=== PATIENT | male | born 1955 | race Caucasian/White ===

== ENCOUNTER 2019-03-16 22:48 | Inpatient (IN) ==
[2019-03-16] MEDS ORDERED: 0.9 % Sodium Chloride 1,000 ML IVC ONE ×2 (22:54→23:48)
[2019-03-16] MEDS ORDERED: Piperacillin/Tazobactam 3.375 GM in 0.9 % Sodium Chloride Mini Bag 100 ML IVPB ONE (23:01)
[2019-03-16 23:14] LABS: Basophils # 0.1 K/mcL (0.0-0.2); Basophils % 0.4 %; Eosinophils % 0.1 %; Hematocrit 35.8 % (37.5-50.1); Hemoglobin 11.8 g/dL (12.9-16.9); Immature Granulocytes % 3.7 % (0-4); Lymphocytes # 0.1 K/mcL (0.6-4.6); Lymphocytes % 0.8 %; Mean Corpuscular Hemoglobin 33.2 pg (28.0-33.3); Mean Platelet Volume 8.6 fL (9.4-12.4); Monocytes # 0.2 K/mcL (0.0-1.3); Monocytes % 1.7 %; Neutrophils # 12.2 K/mcL (1.6-8.9); Nucleated Red Blood Cells 0.7 /100 WBC (0); Platelet Count 210 K/mcL (140-400); Red Blood Count 3.55 M/mcL (4.19-5.50); Segmented Neutrophils % 93.3 %; White Blood Count 13.1 K/mcL (4.3-11.1)
[2019-03-16 23:15] LABS: Mean Corpuscular Volume 100.8 fL (83.0-100.0)
[2019-03-16 23:22] LABS: INR 1.1; Prothrombin Time 12.2 Seconds (9.4-12.1)
[2019-03-16 23:24] LABS: Activated Partial Thrombo Time 32.4 Seconds (26.0-36.0)
[2019-03-16 23:33] LABS: Polychromasia 1+ (Not Present)
[2019-03-16] MEDS ORDERED: Ketorolac 15 MG/ML VIAL IVP ONE (23:34)
[2019-03-16 23:37] LABS: Alanine Aminotransferase 72 Units/L (7-52); Albumin 3.8 g/dL (3.5-5.7); Alkaline Phosphatase 118 Units/L (34-104); Aspartate Amino Transferase 56 Units/L (13-39); BUN/Creatinine Ratio 19 (6-26); Bilirubin,Direct 0.1 mg/dL (0.0-0.2); Bilirubin,Indirect 0.2 mg/dL (0.0-1.2); Bilirubin,Total 0.3 mg/dL (0.3-1.0); Blood Urea Nitrogen 22 mg/dL (8-23); Calcium 9.2 mg/dL (8.6-10.3); Carbon Dioxide 26 mEq/L (23-29); Chloride 99 mEq/L (98-107); Globulin 3.9 g/dL (2.4-3.5); Glucose 105 mg/dL (70-105); Magnesium 1.8 mg/dL (1.6-2.6); Osmolality,Calculated 284 (280-300); Potassium 4.1 mEq/L (3.5-5.1); Sodium 135 mEq/L (136-145); Total Protein 7.7 g/dL (6.4-8.9); Troponin I < 0.03 ng/mL (< 0.04); eGFR For African Americans > 60 (> 60); eGFR For Non-African Americans > 60 (> 60)
--- NOTE | 2019-03-16 23:47 | Emergency Department Note ---
Disposition Clinical Impression: Sepsis Qualifiers: Sepsis type: sepsis due to unspecified organism Qualified Code(s): A41.9 - Sepsis, unspecified organism Fever Qualifiers: Fever type: unspecified Qualified Code(s): R50.9 - Fever, unspecified Disposition: Still a Patient Condition: Fair Referrals: NONE,PCP [Primary Care Provider] - Forms: ED Satisfaction Letter Time of Disposition: 00:53 General Adult HPI - General Chief complaint: ED Chest Pain Stated complaint: Vomiting, Weakness, Cancer pt. Time Seen by Provider: 03/16/19 22:49 Source: patient, family () Limitations: no limitations Nursing Notes Reviewed: Yes Vital Signs Reviewed: Yes - History of Present Illness HPI Narrative: 64-year-old male history of lung cancer currently undergoing radiation presents to the emergency department with weakness and vomiting. States starting today he is feeling weak. His had to help him go to the bathroom multiple times. His most recent episode he believes he tripped fell off to the side onto his right arm. He is unsure if he hit his head. No loss of consciousness. He does not take any anticoagulants. He required assistance to get up and his noted that he was warm to the touch. In oral temperature was obtained and he had a fever. He presents here for further evaluation. On the way into the hospital and out of the house he had episode of nonbloody emesis. He has not eaten much in the past 2 days. He was recently diagnosed with pneumonia treated inpatient and then discharge home. He normally wears oxygen at home but denies any significant shortness of breath. He points to some discomfort in the lower left chest wall in epigastric region. He follows with Dr. Riggs and Dr. Preciado and currently is undergoing radiation after completing chemotherapy a month ago. He has only received 2 doses of radiation and has not had any for the past week or so due to the diagnosis of pneumonia and is weakness. Pain Scale: 10 - Related Data Home Medications Medication Instructions Recorded Confirmed Aspirin 325 mg PO DAILY PRN 03/02/19 03/16/19 Turmeric Root Extract [Turmeric] 500 mg PO 2-3XD 03/03/19 03/16/19 predniSONE [PredniSONE] 5 mg PO BID 03/03/19 03/16/19 Previous Rx's Medication Instructions Recorded Omeprazole [PriLOSEC] 20 mg PO BIDAC #60 capsule. 11/29/18 Promethazine [Phenergan] 25 mg PO Q6HR PRN #30 tablet 12/15/18 Venlafaxine XR (24 HR) [Effexor XR] 75 mg PO DAILY #30 cap.er.24h 02/02/19 Levothyroxine [Synthroid] 25 mcg PO 0630 #30 tablet 02/03/19 Dexamethasone [Decadron] 8 mg PO BID 30 Days #120 tab 02/07/19 Amoxicillin/Clavulanate [Augmentin] 875 mg PO BIDWM #12 tablet 03/08/19 Allergies Allergy/AdvReac Type Severity Reaction Status Date / Time No Known Allergies Allergy Verified 02/09/19 10:36 All systems ED: reviewed and negative except as stated. Review of Systems: As Per HPI Constitutional: Reports: fever, weakness. Denies: chills Cardiovascular: Reports: syncope. Denies: chest pain Respiratory: Reports: dyspnea Gastrointestinal: Reports: nausea, vomiting. Denies: abdominal pain, diarrhea Genitourinary: Denies: dysuria Neurological: Reports: confusion. Denies: headache Endocrine: Reports: fatigue Past Medical History - Past Medical History Attestation: Yes The following information was validated with the patient. Source: patient Medical history: Reports: cancer, GERD Psychiatric history: Reports: no psych history - Social History Smoking Status: Former smoker Smokeless Tobacco Status: No Alcohol use: Reports: none Drug use: Reports: none Physical Exam - General Limitations: no limitations General appearance: alert, other (Ill appearing) - Head Head exam: atraumatic, normocephalic, normal inspection - Eye Eye exam: Present: normal appearance, EOMI, other (slight right ptosis) - ENT ENT exam: normal exam, normal oropharynx, mucous membranes dry - Neck Neck exam: Present: normal inspection, full ROM, trachea midline - Chest Chest inspection: Present: normal inspection, symmetric chest wall rise - Respiratory Respiratory exam: Present: respiratory distress (Moderate), other (Bilateral crackles with diminished breath sounds) - Cardiovascular Cardiovascular exam: Present: normal rhythm, tachycardia, normal heart sounds - Expanded Cardiovascular Exam Peripheral pulses: 2+: radial (R), radial (L) - Abdominal Exam Abdominal exam: Present: soft, Non-Tender, normal bowel sounds. Absent: tenderness, distention, guarding, rebound, rigidity - Extremities Exam Extremities exam: Present: normal inspection, full ROM. Absent: tenderness, pedal edema, calf tenderness - Back Exam Back exam: Present: normal inspection, full ROM. Absent: tenderness - Neurological Exam Neurological exam: Present: alert - Expanded Neurological Exam Patient oriented to: Present: person, place. Absent: time (2017, (Thursday)) Speech: Present: fluid speech Cranial nerves: EOM function (II, III, IV, ): Normal, facial sensation (V): Normal, facial palsy (VII): Abnormal Right (right ptosis), gag reflex (IX): Normal, spinal accessory function (XI): Normal, tongue deviation (XII): Normal Motor strength - LUE: 4/5 Motor strength - RUE: 4/5 Motor strength - LLE: 4/5 Motor strength - RLE: 4/5 Coma Scale Eye Opening: Spontaneous Coma Scale Motor Response: Obeys Commands Coma Scale Verbal Response: Confused Coma Scale Total: 14 - Psychiatric Psychiatric exam: Present: normal affect, normal mood - Skin Skin exam: Present: warm, dry, intact, pallor. Absent: rash, cyanosis, diaphoresis Course Course Narrative: Patient a history of lung cancer on radiation presenting with weakness in episode of vomiting. He is also complaining of some chest discomfort and dyspnea. His lungs are diminished bilaterally with some crackles. Review of his labs shows tachycardia fever concern for sepsis however given his recent hospitalization and malignancy concern for pulmonary embolism. His confusion could be attributed to likely infectious etiology such as pneumonia given the fall will consider any future cranial abnormality. Likely infectious source is pulmonary. Sepsis workup initiated including IV fluid resuscitation and CT imaging including head as he reportedly has brain mets. Will initiate vancomycin and Zosyn. Patient will require admission. - Reevaluation(s) Reevaluation #1: Review of his labs shows a leukocytosis. His lactate elevated at 2.3. Some abnormalities to his liver enzymes. Given the vomiting will obtain CT imaging of his abdomen and pelvis. Patient will require admission pending CT imaging. He will be signed out to nighttime physician Dr. Dc and Dr. Hardy. Please see his note for further details. Time: 00:32 Vital Signs Temperature 102.9 F H 03/16/19 22:58 Pulse Rate 113 03/16/19 22:58 Respiratory Rate 16 03/16/19 22:58 Blood Pressure 123/73 07/24/19 22:58 O2 Sat by Pulse Oximetry 94 03/16/19 22:58 Temperature 102.9 F H 03/16/19 22:58 Pulse Rate 107 03/17/19 00:01 Respiratory Rate 22 03/17/19 00:01 Blood Pressure 111/68 03/17/19 00:01 O2 Sat by Pulse Oximetry 99 03/17/19 00:01 Oxygen Delivery Oxygen Delivery Nasal Cannula Medical Decision Making - MDM Narrative Medical decision making narrative: Patient was discussed with my attending physician who agrees with ED management and final disposition. They independently evaluated the patient. Please refer to their attestation to this encounter for additional information. This note was generated by [employer] voice recognition software and as a result grammatical or spelling errors may occur using this program. - Medical Records Medical records reviewed: Yes I reviewed the patient's medical records. - Lab Data Lab results reviewed: Yes I reviewed the patient's lab results. Result diagrams: 03/16/19 23:03 03/16/19 23:03 Lab Results 03/16/19 03/16/19 03/16/19 Range/Units 23:03 23:03 23:03 WBC 13.1 H (4.3-11.1) K/mcL RBC 3.55 L (4.19-5.50) M/mcL Hgb 11.8 L (12.9-16.9) g/dL Hct 35.8 L (37.5-50.1) % MCV 100.8 H D (83.0-100.0) fL MCH 33.2 (28.0-33.3) pg MCHC 33.0 (31.6-35.5) g/dL RDW 14.0 (11.5-14.5) % Plt Count 210 (140-400) K/mcL MPV 8.6 L (9.4-12.4) fL Immature Gran % 3.7 (0-4) % Seg Neutrophils % 93.3 % Lymphocytes % 0.8 % Monocytes % 1.7 % Eosinophils % 0.1 % Basophils % 0.4 % Neutrophils # 12.2 H (1.6-8.9) K/mcL Lymphocytes # 0.1 L (0.6-4.6) K/mcL Monocytes # 0.2 (0.0-1.3) K/mcL Eosinophils # 0.0 (0.0-0.6) K/mcL Basophils # 0.1 (0.0-0.2) K/mcL Nucleated RBCs/100 WBC 0.7 H (0) /100 WBC Polychromasia 1+ A (Not Present) PT 12.2 H (9.4-12.1) Seconds INR 1.1 APTT 32.4 (26.0-36.0) Seconds Sodium 135 L (136-145) mEq/L Potassium 4.1 (3.5-5.1) mEq/L Chloride 99 (98-107) mEq/L Carbon Dioxide 26 (23-29) mEq/L BUN 22 (8-23) mg/dL Creatinine 1.17 (0.70-1.30) mg/dL Est GFR ( Amer) > 60 (> 60) Est GFR (Non-Af Amer) > 60 (> 60) BUN/Creatinine Ratio 19 (6-26) Glucose 105 (70-105) mg/dL Calculated Osmolality 284 (280-300) Lactic Acid (0.5-2.2) mmol/L Calcium 9.2 (8.6-10.3) mg/dL Phosphorus 2.0 L (2.7-4.5) mg/dL Magnesium 1.8 (1.6-2.6) mg/dL Total Bilirubin 0.3 (0.3-1.0) mg/dL Direct Bilirubin 0.1 (0.0-0.2) mg/dL Indirect Bilirubin 0.2 (0.0-1.2) mg/dL AST 56 H (13-39) Units/L ALT 72 H (7-52) Units/L Alkaline Phosphatase 118 H (34-104) Units/L Troponin I < 0.03 (< 0.04) ng/mL Serum Total Protein 7.7 (6.4-8.9) g/dL Albumin 3.8 (3.5-5.7) g/dL Globulin 3.9 H (2.4-3.5) g/dL Albumin/Globulin Ratio 1.0 L (1.1-2.2) Urine Color (Yellow) Urine Clarity (Clear) Urine pH (5.0-8.0) pH Units Ur Specific [place] (1.010-1.025) Urine Protein (Neg-Trace) mg/dL Urine Glucose (UA) (Normal) mg/dL Urine Ketones (Negative) mg/dL Urine Blood (Negative) Urine Nitrite (Negative) Urine Bilirubin (Negative) Urine Urobilinogen (Normal) mg/dL Ur Leukocyte Esterase (Negative) Ur Culture Indicated? (NO) 03/16/19 03/16/19 Range/Units 23:03 23:43 WBC (4.3-11.1) K/mcL RBC (4.19-5.50) M/mcL Hgb (12.9-16.9) g/dL Hct (37.5-50.1) % MCV (83.0-100.0) fL MCH (28.0-33.3) pg MCHC (31.6-35.5) g/dL RDW (11.5-14.5) % Plt Count (140-400) K/mcL MPV (9.4-12.4) fL Immature Gran % (0-4) % Seg Neutrophils % % Lymphocytes % % Monocytes % % Eosinophils % % Basophils % % Neutrophils # (1.6-8.9) K/mcL Lymphocytes # (0.6-4.6) K/mcL Monocytes # (0.0-1.3) K/mcL Eosinophils # (0.0-0.6) K/mcL Basophils # (0.0-0.2) K/mcL Nucleated RBCs/100 WBC (0) /100 WBC Polychromasia (Not Present) PT (9.4-12.1) Seconds INR APTT (26.0-36.0) Seconds Sodium (136-145) mEq/L Potassium (3.5-5.1) mEq/L Chloride (98-107) mEq/L Carbon Dioxide (23-29) mEq/L BUN (8-23) mg/dL Creatinine (0.70-1.30) mg/dL Est GFR ( Amer) (> 60) Est GFR (Non-Af Amer) (> 60) BUN/Creatinine Ratio (6-26) Glucose (70-105) mg/dL Calculated Osmolality (280-300) Lactic Acid 2.4 H (0.5-2.2) mmol/L Calcium (8.6-10.3) mg/dL Phosphorus (2.7-4.5) mg/dL Magnesium (1.6-2.6) mg/dL Total Bilirubin (0.3-1.0) mg/dL Direct Bilirubin (0.0-0.2) mg/dL Indirect Bilirubin (0.0-1.2) mg/dL AST (13-39) Units/L ALT (7-52) Units/L Alkaline Phosphatase (34-104) Units/L Troponin I (< 0.04) ng/mL Serum Total Protein (6.4-8.9) g/dL Albumin (3.5-5.7) g/dL Globulin (2.4-3.5) g/dL Albumin/Globulin Ratio (1.1-2.2) Urine Color Yellow (Yellow) Urine Clarity Clear (Clear) Urine pH 7.0 (5.0-8.0) pH Units Ur Specific [place] 1.012 (1.010-1.025) Urine Protein Negative (Neg-Trace) mg/dL Urine Glucose (UA) Normal (Normal) mg/dL Urine Ketones Negative (Negative) mg/dL Urine Blood Negative (Negative) Urine Nitrite Negative (Negative) Urine Bilirubin Negative (Negative) Urine Urobilinogen Normal (Normal) mg/dL Ur Leukocyte Esterase Negative (Negative) Ur Culture Indicated? NO (NO) - Radiology Data Radiology results reviewed: Yes I reviewed the patient's radiology results. Chest X-Ray 03/16/19 22:55 IMPRESSION: Interval improvement of infiltrate at the right lung base. D/ / Janet Edwards MD / Janet Edwards MD Interpreting Provider: Janet Edwards MD - EKG Data EKG #1 EKG attestation: Yes I reviewed and interpreted this EKG. EKG results narrative: EKG performed 2255 sinus tachycardia 1 15 bpm, normal axis, good R wave progression, no ST elevation or depression, no T-wave inversion. Intervals appear within normal limits. No old EKG available for comparison at this time. No acute ischemic changes. S.B.A.R. - S.B.A.R. Situation: Demographics, MOA Background: Presenting Complaint, Relevant PMH, Meds, & Allergies Assessment: Vital Signs, Course and respsone to treatment, Exam Concerns, P atient/Family Expectation, Pertinant Lab Results (WBC, Lactate), Outstanding Labs (lactate, CT imaging) Recommendation: Barrier(s) to disposition, Recommendation based on pending studies, treatments, or consults (admission) S.B.A.R. Report Given to: Dr. Dc/Hayley Mcghee Repor Time: 00:53
[2019-03-17] MEDS ORDERED: Isovue-370 500 ML BOTTLE IVP ONE (00:07)
[2019-03-17 00:10] LABS: Bilirubin,Urine Negative (Negative); Blood,Urine Negative (Negative); Clarity,Urine Clear (Clear); Color,Urine Yellow (Yellow); Glucose,Urine (UA) Normal (Normal); Ketones,Urine Negative (Negative); Leukocyte Esterase,Urine Negative (Negative); Nitrite,Urine Negative (Negative); Protein,Urine Negative (Neg-Trace); Specific Gravity,Urine 1.012 (1.010-1.025); Urobilinogen,Urine Normal (Normal)
--- NOTE | 2019-03-17 00:34 | Emergency Department Note ---
Disposition Clinical Impression: Sepsis Qualifiers: Sepsis type: sepsis due to unspecified organism Qualified Code(s): A41.9 - Sepsis, unspecified organism Disposition: Still a Patient Condition: Good Referrals: NONE,PCP [Primary Care Provider] - Forms: ED Satisfaction Letter Time of Disposition: 00:31 General Adult HPI - General Chief complaint: ED Chest Pain Stated complaint: Vomiting, Weakness, Cancer pt. Time Seen by Provider: 03/16/19 22:49 Source: patient, family () Limitations: no limitations - History of Present Illness Pain Scale: 10 - Related Data Home Medications Medication Instructions Recorded Confirmed Aspirin 325 mg PO DAILY PRN 03/02/19 03/16/19 Turmeric Root Extract [Turmeric] 500 mg PO 2-3XD 03/03/19 03/16/19 predniSONE [PredniSONE] 5 mg PO BID 03/03/19 03/16/19 Previous Rx's Medication Instructions Recorded Omeprazole [PriLOSEC] 20 mg PO BIDAC #60 capsule.dr 11/29/18 Promethazine [Phenergan] 25 mg PO Q6HR PRN #30 tablet 12/15/18 Venlafaxine XR (24 HR) [Effexor XR] 75 mg PO DAILY #30 cap.er.24h 02/02/19 Levothyroxine [Synthroid] 25 mcg PO 0630 #30 tablet 02/03/19 Dexamethasone [Decadron] 8 mg PO BID 30 Days #120 tab 02/07/19 Amoxicillin/Clavulanate [Augmentin] 875 mg PO BIDWM #12 tablet 03/08/19 Allergies Allergy/AdvReac Type Severity Reaction Status Date / Time No Known Allergies Allergy Verified 02/09/19 10:36 Constitutional: Reports: fever, weakness. Denies: chills Cardiovascular: Reports: syncope. Denies: chest pain Respiratory: Reports: dyspnea Gastrointestinal: Reports: nausea, vomiting. Denies: abdominal pain, diarrhea Genitourinary: Denies: dysuria Neurological: Reports: confusion. Denies: headache Endocrine: Reports: fatigue Past Medical History - Past Medical History Medical history: Reports: cancer, GERD Psychiatric history: Reports: no psych history - Social History Smoking Status: Former smoker Smokeless Tobacco Status: No Alcohol use: Reports: none Drug use: Reports: none Physical Exam - General Limitations: no limitations General appearance: alert, other (Ill appearing) Course - Consultations Consultation #1: signed out patinet to Dr. Dc and Hayley for followup on CT Scans, Sepsis protocol has been started and zosyn therapy has been given with IVF therapy. Plan is to followup on his CT scan (H/C/AB) and then admit to medicine Time: 00:31 Vital Signs Temperature 102.9 F H 03/16/19 22:58 Pulse Rate 113 03/16/19 22:58 Respiratory Rate 16 03/16/19 22:58 Blood Pressure 123/73 03/16/19 22:58 O2 Sat by Pulse Oximetry 94 03/16/19 22:58 Temperature 102.9 F H 03/16/19 22:58 Pulse Rate 107 03/17/19 00:01 Respiratory Rate 22 03/17/19 00:01 Blood Pressure 111/68 03/17/19 00:01 O2 Sat by Pulse Oximetry 99 03/17/19 00:01 Oxygen Delivery Oxygen Delivery Nasal Cannula Medical Decision Making - Lab Data Result diagrams: 03/16/19 23:03 03/16/19 23:03 Lab Results 03/16/19 03/16/19 03/16/19 Range/Units 23:03 23:03 23:03 WBC 13.1 H (4.3-11.1) K/mcL RBC 3.55 L (4.19-5.50) M/mcL Hgb 11.8 L (12.9-16.9) g/dL Hct 35.8 L (37.5-50.1) % MCV 100.8 H D (83.0-100.0) fL MCH 33.2 (28.0-33.3) pg MCHC 33.0 (31.6-35.5) g/dL RDW 14.0 (11.5-14.5) % Plt Count 210 (140-400) K/mcL MPV 8.6 L (9.4-12.4) fL Immature Gran % 3.7 (0-4) % Seg Neutrophils % 93.3 % Lymphocytes % 0.8 % Monocytes % 1.7 % Eosinophils % 0.1 % Basophils % 0.4 % Neutrophils # 12.2 H (1.6-8.9) K/mcL Lymphocytes # 0.1 L (0.6-4.6) K/mcL Monocytes # 0.2 (0.0-1.3) K/mcL Eosinophils # 0.0 (0.0-0.6) K/mcL Basophils # 0.1 (0.0-0.2) K/mcL Nucleated RBCs/100 WBC 0.7 H (0) /100 WBC Polychromasia 1+ A (Not Present) PT 12.2 H (9.4-12.1) Seconds INR 1.1 APTT 32.4 (26.0-36.0) Seconds Sodium 135 L (136-145) mEq/L Potassium 4.1 (3.5-5.1) mEq/L Chloride 99 (98-107) mEq/L Carbon Dioxide 26 (23-29) mEq/L BUN 22 (8-23) mg/dL Creatinine 1.17 (0.70-1.30) mg/dL Est GFR ( Amer) > 60 (> 60) Est GFR (Non-Af Amer) > 60 (> 60) BUN/Creatinine Ratio 19 (6-26) Glucose 105 (70-105) mg/dL Calculated Osmolality 284 (280-300) Lactic Acid (0.5-2.2) mmol/L Calcium 9.2 (8.6-10.3) mg/dL Phosphorus 2.0 L (2.7-4.5) mg/dL Magnesium 1.8 (1.6-2.6) mg/dL Total Bilirubin 0.3 (0.3-1.0) mg/dL Direct Bilirubin 0.1 (0.0-0.2) mg/dL Indirect Bilirubin 0.2 (0.0-1.2) mg/dL AST 56 H (13-39) Units/L ALT 72 H (7-52) Units/L Alkaline Phosphatase 118 H (34-104) Units/L Troponin I < 0.03 (< 0.04) ng/mL Serum Total Protein 7.7 (6.4-8.9) g/dL Albumin 3.8 (3.5-5.7) g/dL Globulin 3.9 H (2.4-3.5) g/dL Albumin/Globulin Ratio 1.0 L (1.1-2.2) Urine Color (Yellow) Urine Clarity (Clear) Urine pH (5.0-8.0) pH Units Ur Specific [place] (1.010-1.025) Urine Protein (Neg-Trace) mg/dL Urine Glucose (UA) (Normal) mg/dL Urine Ketones (Negative) mg/dL Urine Blood (Negative) Urine Nitrite (Negative) Urine Bilirubin (Negative) Urine Urobilinogen (Normal) mg/dL Ur Leukocyte Esterase (Negative) Ur Culture Indicated? (NO) 03/16/19 03/16/19 Range/Units 23:03 23:43 WBC (4.3-11.1) K/mcL RBC (4.19-5.50) M/mcL Hgb (12.9-16.9) g/dL Hct (37.5-50.1) % MCV (83.0-100.0) fL MCH (28.0-33.3) pg MCHC (31.6-35.5) g/dL RDW (11.5-14.5) % Plt Count (140-400) K/mcL MPV (9.4-12.4) fL Immature Gran % (0-4) % Seg Neutrophils % % Lymphocytes % % Monocytes % % Eosinophils % % Basophils % % Neutrophils # (1.6-8.9) K/mcL Lymphocytes # (0.6-4.6) K/mcL Monocytes # (0.0-1.3) K/mcL Eosinophils # (0.0-0.6) K/mcL Basophils # (0.0-0.2) K/mcL Nucleated RBCs/100 WBC (0) /100 WBC Polychromasia (Not Present) PT (9.4-12.1) Seconds INR APTT (26.0-36.0) Seconds Sodium (136-145) mEq/L Potassium (3.5-5.1) mEq/L Chloride (98-107) mEq/L Carbon Dioxide (23-29) mEq/L BUN (8-23) mg/dL Creatinine (0.70-1.30) mg/dL Est GFR ( Amer) (> 60) Est GFR (Non-Af Amer) (> 60) BUN/Creatinine Ratio (6-26) Glucose (70-105) mg/dL Calculated Osmolality (280-300) Lactic Acid 2.4 H (0.5-2.2) mmol/L Calcium (8.6-10.3) mg/dL Phosphorus (2.7-4.5) mg/dL Magnesium (1.6-2.6) mg/dL Total Bilirubin (0.3-1.0) mg/dL Direct Bilirubin (0.0-0.2) mg/dL Indirect Bilirubin (0.0-1.2) mg/dL AST (13-39) Units/L ALT (7-52) Units/L Alkaline Phosphatase (34-104) Units/L Troponin I (< 0.04) ng/mL Serum Total Protein (6.4-8.9) g/dL Albumin (3.5-5.7) g/dL Globulin (2.4-3.5) g/dL Albumin/Globulin Ratio (1.1-2.2) Urine Color Yellow (Yellow) Urine Clarity Clear (Clear) Urine pH 7.0 (5.0-8.0) pH Units Ur Specific [place] 1.012 (1.010-1.025) Urine Protein Negative (Neg-Trace) mg/dL Urine Glucose (UA) Normal (Normal) mg/dL Urine Ketones Negative (Negative) mg/dL Urine Blood Negative (Negative) Urine Nitrite Negative (Negative) Urine Bilirubin Negative (Negative) Urine Urobilinogen Normal (Normal) mg/dL Ur Leukocyte Esterase Negative (Negative) Ur Culture Indicated? NO (NO) Attestation Statement - Attestation Attestation: I reviewed the residents documentation and agree with the residents assessment and plan of care. I have personally had face to face time with the patient. (Brief History, Brief Exam, and MDM) I personally supervised and was present for the akhtar/critical portions of the following procedures completed by the resident: EKG 64 year old male presents to the ED with complaints of weaknss and productive cough and has a history of cancer and is currenty recieving chemotherapy. Also being treated for pnueoina as an outpatinet and essentially has failed outpatinet therapy. He was a SEPSIS alert upon arrival and we have started protocol with IVF and zosy therapy as pulmonary is likley the source. he does have lv to the brain and elevated lfts, so we will scna HCT, CTA chest, and CT ab/p with IV contrast. We will contienu evaluastion and then admit to medicine.
--- NOTE | 2019-03-17 00:56 | Emergency Department Note ---
Disposition Clinical Impression: Sepsis Qualifiers: Sepsis type: sepsis due to unspecified organism Qualified Code(s): A41.9 - Sepsis, unspecified organism Fever Qualifiers: Fever type: unspecified Qualified Code(s): R50.9 - Fever, unspecified Metastatic lung cancer (metastasis from lung to other site) Qualifiers: Laterality: unspecified laterality Qualified Code(s): C34.90 - Malignant neoplasm of unspecified part of unspecified bronchus or lung Disposition: Admitted As Inpatient Condition: Serious Time of Disposition: 03:47 General Adult HPI - General Chief complaint: ED Chest Pain Stated complaint: Vomiting, Weakness, Cancer pt. Time Seen by Provider: 03/16/19 22:49 Source: patient, family () Limitations: no limitations - History of Present Illness HPI Narrative: Patient signed out from Dr. Jann Cruz and Dr. Keisha Claros at the end of their shift. Please see documentation by these physicians for initial evaluation, management of this patient. 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 He is presenting today due to generalized malaise and weakness nausea vomiting and possible fall. Patient meets sepsis criteria with onus of infection suspected to be in his lung. We are currently pending CT scan of the head and CTA chest, CT abd and pelvis for further evaluation, laboratory results at this time show an elevated white count. Elevated Lactic acid now wnl after IVF, antibiotics. The patient is a full code. Upon my initial examination patient is sitting upright in hospital bed he is alert and oriented he is engaged to conversation answering questions appropriately. He denies pain or nausea at this time. No other concerns or complaints. Pain Scale: 10 - Related Data Home Medications Medication Instructions Recorded Confirmed Aspirin 325 mg PO DAILY PRN 03/02/19 03/16/19 Turmeric Root Extract [Turmeric] 500 mg PO 2-3XD 03/03/19 03/16/19 predniSONE [PredniSONE] 5 mg PO BID 03/03/19 03/16/19 Previous Rx's Medication Instructions Recorded Omeprazole [PriLOSEC] 20 mg PO BIDAC #60 capsule. 11/29/18 Promethazine [Phenergan] 25 mg PO Q6HR PRN #30 tablet 12/15/18 Venlafaxine XR (24 HR) [Effexor XR] 75 mg PO DAILY #30 cap.er.24h 02/02/19 Levothyroxine [Synthroid] 25 mcg PO 0630 #30 tablet 02/03/19 Dexamethasone [Decadron] 8 mg PO BID 30 Days #120 tab 02/07/19 Amoxicillin/Clavulanate [Augmentin] 875 mg PO BIDWM #12 tablet 03/08/19 Allergies Allergy/AdvReac Type Severity Reaction Status Date / Time No Known Allergies Allergy Verified 02/09/19 10:36 Constitutional: Reports: fever, weakness. Denies: chills Cardiovascular: Reports: syncope. Denies: chest pain Respiratory: Reports: dyspnea Gastrointestinal: Reports: nausea, vomiting. Denies: abdominal pain, diarrhea Genitourinary: Denies: dysuria Neurological: Reports: confusion. Denies: headache Endocrine: Reports: fatigue Past Medical History - Past Medical History Medical history: Reports: cancer, GERD Psychiatric history: Reports: no psych history - Social History Smoking Status: Former smoker Smokeless Tobacco Status: No Alcohol use: Reports: none Drug use: Reports: none Physical Exam - General Limitations: no limitations General appearance: alert, other (Ill appearing) Course Vital Signs Temperature 102.9 F H 03/16/19 22:58 Pulse Rate 113 03/16/19 22:58 Respiratory Rate 16 03/16/19 22:58 Blood Pressure 123/73 03/16/19 22:58 O2 Sat by Pulse Oximetry 94 03/16/19 22:58 Temperature 99.8 F H 03/17/19 03:38 Pulse Rate 89 03/17/19 02:00 Respiratory Rate 16 03/17/19 03:38 Blood Pressure 80/65 03/17/19 03:38 O2 Sat by Pulse Oximetry 96 03/17/19 02:00 Oxygen Delivery Oxygen Delivery Nasal Cannula Medical Decision Making - MDM Narrative Medical decision making narrative: CT of the chest shows worsening of secretions in the lower lobe of the right lung. There is a new right middle lobe infiltrate consistent with pneumonia which is a suspected focus of sepsis infection. Patient was admitted to hospitalist medicine service for further evaluation and management with likely pulmonology/oncology consultation. Patient and family members at bedside verbalized their understanding and agreement with this plan. Per the hospitalist requests we have added vancomycin and Levaquin to the patient's antibiotic regimen, also 100 mg Solu-Cortef was ordered and a dministered in the ED per hospitalist. The patient remains asymptomatic at this time. Noted drop in blood pressure after administration of fentanyl for pain which developed here in the ED earlier in the night. The patient is otherwise hemodynamically stable time of admission with improving mentation, strong peripheral pulses, no signs of hypoperfusion. - Lab Data Lab results reviewed: Yes I reviewed the patient's lab results. Result diagrams: 03/16/19 23:03 03/16/19 23:03 Lab Results 03/16/19 03/16/19 03/16/19 Range/Units 23:03 23:03 23:03 WBC 13.1 H (4.3-11.1) K/mcL RBC 3.55 L (4.19-5.50) M/mcL Hgb 11.8 L (12.9-16.9) g/dL Hct 35.8 L (37.5-50.1) % MCV 100.8 H D (83.0-100.0) fL MCH 33.2 (28.0-33.3) pg MCHC 33.0 (31.6-35.5) g/dL RDW 14.0 (11.5-14.5) % Plt Count 210 (140-400) K/mcL MPV 8.6 L (9.4-12.4) fL Immature Gran % 3.7 (0-4) % Seg Neutrophils % 93.3 % Lymphocytes % 0.8 % Monocytes % 1.7 % Eosinophils % 0.1 % Basophils % 0.4 % Neutrophils # 12.2 H (1.6-8.9) K/mcL Lymphocytes # 0.1 L (0.6-4.6) K/mcL Monocytes # 0.2 (0.0-1.3) K/mcL Eosinophils # 0.0 (0.0-0.6) K/mcL Basophils # 0.1 (0.0-0.2) K/mcL Nucleated RBCs/100 WBC 0.7 H (0) /100 WBC Polychromasia 1+ A (Not Present) PT 12.2 H (9.4-12.1) Seconds INR 1.1 APTT 32.4 (26.0-36.0) Seconds Sodium 135 L (136-145) mEq/L Potassium 4.1 (3.5-5.1) mEq/L Chloride 99 (98-107) mEq/L Carbon Dioxide 26 (23-29) mEq/L BUN 22 (8-23) mg/dL Creatinine 1.17 (0.70-1.30) mg/dL Est GFR ( Amer) > 60 (> 60) Est GFR (Non-Af Amer) > 60 (> 60) BUN/Creatinine Ratio 19 (6-26) Glucose 105 (70-105) mg/dL Calculated Osmolality 284 (280-300) Lactic Acid (0.5-2.2) mmol/L Calcium 9.2 (8.6-10.3) mg/dL Phosphorus 2.0 L (2.7-4.5) mg/dL Magnesium 1.8 (1.6-2.6) mg/dL Total Bilirubin 0.3 (0.3-1.0) mg/dL Direct Bilirubin 0.1 (0.0-0.2) mg/dL Indirect Bilirubin 0.2 (0.0-1.2) mg/dL AST 56 H (13-39) Units/L ALT 72 H (7-52) Units/L Alkaline Phosphatase 118 H (34-104) Units/L Troponin I < 0.03 (< 0.04) ng/mL Serum Total Protein 7.7 (6.4-8.9) g/dL Albumin 3.8 (3.5-5.7) g/dL Globulin 3.9 H (2.4-3.5) g/dL Albumin/Globulin Ratio 1.0 L (1.1-2.2) Urine Color (Yellow) Urine Clarity (Clear) Urine pH (5.0-8.0) pH Units Ur Specific [place] (1.010-1.025) Urine Protein (Neg-Trace) mg/dL Urine Glucose (UA) (Normal) mg/dL Urine Ketones (Negative) mg/dL Urine Blood (Negative) Urine Nitrite (Negative) Urine Bilirubin (Negative) Urine Urobilinogen (Normal) mg/dL Ur Leukocyte Esterase (Negative) Ur Culture Indicated? (NO) 03/16/19 03/16/19 03/17/19 Range/Units 23:03 23:43 01:22 WBC (4.3-11.1) K/mcL RBC (4.19-5.50) M/mcL Hgb (12.9-16.9) g/dL Hct (37.5-50.1) % MCV (83.0-100.0) fL MCH (28.0-33.3) pg MCHC (31.6-35.5) g/dL RDW (11.5-14.5) % Plt Count (140-400) K/mcL MPV (9.4-12.4) fL Immature Gran % (0-4) % Seg Neutrophils % % Lymphocytes % % Monocytes % % Eosinophils % % Basophils % % Neutrophils # (1.6-8.9) K/mcL Lymphocytes # (0.6-4.6) K/mcL Monocytes # (0.0-1.3) K/mcL Eosinophils # (0.0-0.6) K/mcL Basophils # (0.0-0.2) K/mcL Nucleated RBCs/100 WBC (0) /100 WBC Polychromasia (Not Present) PT (9.4-12.1) Seconds INR APTT (26.0-36.0) Seconds Sodium (136-145) mEq/L Potassium (3.5-5.1) mEq/L Chloride (98-107) mEq/L Carbon Dioxide (23-29) mEq/L BUN (8-23) mg/dL Creatinine (0.70-1.30) mg/dL Est GFR ( Amer) (> 60) Est GFR (Non-Af Amer) (> 60) BUN/Creatinine Ratio (6-26) Glucose (70-105) mg/dL Calculated Osmolality (280-300) Lactic Acid 2.4 H 1.7 (0.5-2.2) mmol/L Calcium (8.6-10.3) mg/dL Phosphorus (2.7-4.5) mg/dL Magnesium (1.6-2.6) mg/dL Total Bilirubin (0.3-1.0) mg/dL Direct Bilirubin (0.0-0.2) mg/dL Indirect Bilirubin (0.0-1.2) mg/dL AST (13-39) Units/L ALT (7-52) Units/L Alkaline Phosphatase (34-104) Units/L Troponin I (< 0.04) ng/mL Serum Total Protein (6.4-8.9) g/dL Albumin (3.5-5.7) g/dL Globulin (2.4-3.5) g/dL Albumin/Globulin Ratio (1.1-2.2) Urine Color Yellow (Yellow) Urine Clarity Clear (Clear) Urine pH 7.0 (5.0-8.0) pH Units Ur Specific [place] 1.012 (1.010-1.025) Urine Protein Negative (Neg-Trace) mg/dL Urine Glucose (UA) Normal (Normal) mg/dL Urine Ketones Negative (Negative) mg/dL Urine Blood Negative (Negative) Urine Nitrite Negative (Negative) Urine Bilirubin Negative (Negative) Urine Urobilinogen Normal (Normal) mg/dL Ur Leukocyte Esterase Negative (Negative) Ur Culture Indicated? NO (NO) - Radiology Data Radiology results reviewed: Yes I reviewed the patient's radiology results. Chest X-Ray 03/16/19 22:55 IMPRESSION: Interval improvement of infiltrate at the right lung base. D/ / Janet Edwards MD / Janet Edwards MD Interpreting Provider: Janet Edwards MD Abdomen/Pelvis CT 03/17/19 00:07 IMPRESSION: No acute findings in the abdomen and pelvis. No metastatic disease in the abdomen or pelvis. D/ / Janet Edwards MD / Janet Edwards MD Interpreting Provider: Janet Edwards MD Chest CTA 03/17/19 00:07 IMPRESSION: 1. No pulmonary embolism. 2. Significant interval worsening, with right hilar mass now contiguous with extensive infiltrate in the right lower lobe. Secretions completely obliterate main bronchus to right lower lobe. 3. New infiltrate in the right middle lobe. New atelectasis and possible infiltrate along the posterior aspect of the left lower lobe. 4. New small right pleural effusion. 5. Lytic metastasis along the posterior arch of the left 4th rib with adjacent 1.2 cm focal pleural thickening/metastasis.Small cortical metastasis in the right humeral head. 6. Severe emphysema. D/ / Janet Edwards MD / Janet Edwards MD Interpreting Provider: Janet Edwards MD Head CT 03/17/19 00:14 IMPRESSION: No acute intracranial abnormality. D/ / Janet Edwards MD / Janet Edwards MD Interpreting Provider: Janet Edwards MD
[2019-03-17] MEDS ORDERED: *HR* FentaNYL (PF) 100 MCG/2 ML VIAL IVP ONE (00:58)
--- NOTE | 2019-03-17 00:58 | Emergency Department Note ---
Disposition Clinical Impression: Sepsis Qualifiers: Sepsis type: sepsis due to unspecified organism Qualified Code(s): A41.9 - Sepsis, unspecified organism Fever Qualifiers: Fever type: unspecified Qualified Code(s): R50.9 - Fever, unspecified Metastatic lung cancer (metastasis from lung to other site) Qualifiers: Laterality: unspecified laterality Qualified Code(s): C34.90 - Malignant neoplasm of unspecified part of unspecified bronchus or lung Disposition: Still a Patient Condition: Fair Referrals: NONE,PCP [Primary Care Provider] - Forms: ED Satisfaction Letter Time of Disposition: 00:58 General Adult HPI - General Chief complaint: ED Chest Pain Stated complaint: Vomiting, Weakness, Cancer pt. Time Seen by Provider: 03/16/19 22:49 Source: patient, family () Limitations: no limitations Nursing Notes Reviewed: Yes Vital Signs Reviewed: Yes - History of Present Illness HPI Narrative: Attestation note: Patient was seen with the emergency medicine resident/nurse practitioner/physician after school program assistant/transitional resident/medical student: Dr. MOLLY VALADEZ. I was present for the significant portions of the performance and interpretation of procedures and EKGs. I have personally performed a face to face evaluation on this patient. I have reviewed and agree with history and physical examination patient management and disposition. 64-year-old male history of lung cancer metastasis of the brain signed out by the departing ED attending Dr.NISHA ONTIVEROS and resident Dr. Jann Cruz. Please see That note for details of the history and physical examination evaluation and management to the point of sign out at 1 AM. Patient's lactic acid is elevated 2.4 it is presumed the source of infection for his fever and his presentation for sepsis this is lung. Patient getting multiple CT scans that he will follow-up and then admit. Patient is ready gotten IV antibiotics and fluid. We provided additional 35 minutes critical care service for this patient Pain Scale: 10 - Related Data Home Medications Medication Instructions Recorded Confirmed Aspirin 325 mg PO DAILY PRN 03/02/19 03/16/19 Turmeric Root Extract [Turmeric] 500 mg PO 2-3XD 03/03/19 03/16/19 predniSONE [PredniSONE] 5 mg PO BID 03/03/19 03/16/19 Previous Rx's Medication Instructions Recorded Omeprazole [PriLOSEC] 20 mg PO BIDAC #60 capsule. 11/29/18 Promethazine [Phenergan] 25 mg PO Q6HR PRN #30 tablet 12/15/18 Venlafaxine XR (24 HR) [Effexor XR] 75 mg PO DAILY #30 cap.er.24h 02/02/19 Levothyroxine [Synthroid] 25 mcg PO 0630 #30 tablet 02/03/19 Dexamethasone [Decadron] 8 mg PO BID 30 Days #120 tab 02/07/19 Amoxicillin/Clavulanate [Augmentin] 875 mg PO BIDWM #12 tablet 03/08/19 Allergies Allergy/AdvReac Type Severity Reaction Status Date / Time No Known Allergies Allergy Verified 02/09/19 10:36 Constitutional: Reports: fever, weakness. Denies: chills Cardiovascular: Reports: syncope. Denies: chest pain Respiratory: Reports: dyspnea Gastrointestinal: Reports: nausea, vomiting. Denies: abdominal pain, diarrhea Genitourinary: Denies: dysuria Neurological: Reports: confusion. Denies: headache Endocrine: Reports: fatigue Past Medical History - Past Medical History Medical history: Reports: cancer, GERD Psychiatric history: Reports: no psych history - Social History Smoking Status: Former smoker Smokeless Tobacco Status: No Alcohol use: Reports: none Drug use: Reports: none Physical Exam - General Limitations: no limitations General appearance: alert, other (Ill appearing) Course Vital Signs Temperature 102.9 F H 03/16/19 22:58 Pulse Rate 113 03/16/19 22:58 Respiratory Rate 16 03/16/19 22:58 Blood Pressure 123/73 03/16/19 22:58 O2 Sat by Pulse Oximetry 94 03/16/19 22:58 Temperature 102.9 F H 03/16/19 22:58 Pulse Rate 107 03/17/19 00:01 Respiratory Rate 22 03/17/19 00:01 Blood Pressure 111/68 03/17/19 00:01 O2 Sat by Pulse Oximetry 99 03/17/19 00:01 Oxygen Delivery Oxygen Delivery Nasal Cannula Medical Decision Making - Lab Data Result diagrams: 03/16/19 23:03 03/16/19 23:03 Lab Results 03/16/19 03/16/19 03/16/19 Range/Units 23:03 23:03 23:03 WBC 13.1 H (4.3-11.1) K/mcL RBC 3.55 L (4.19-5.50) M/mcL Hgb 11.8 L (12.9-16.9) g/dL Hct 35.8 L (37.5-50.1) % MCV 100.8 H D (83.0-100.0) fL MCH 33.2 (28.0-33.3) pg MCHC 33.0 (31.6-35.5) g/dL RDW 14.0 (11.5-14.5) % Plt Count 210 (140-400) K/mcL MPV 8.6 L (9.4-12.4) fL Immature Gran % 3.7 (0-4) % Seg Neutrophils % 93.3 % Lymphocytes % 0.8 % Monocytes % 1.7 % Eosinophils % 0.1 % Basophils % 0.4 % Neutrophils # 12.2 H (1.6-8.9) K/mcL Lymphocytes # 0.1 L (0.6-4.6) K/mcL Monocytes # 0.2 (0.0-1.3) K/mcL Eosinophils # 0.0 (0.0-0.6) K/mcL Basophils # 0.1 (0.0-0.2) K/mcL Nucleated RBCs/100 WBC 0.7 H (0) /100 WBC Polychromasia 1+ A (Not Present) PT 12.2 H (9.4-12.1) Seconds INR 1.1 APTT 32.4 (26.0-36.0) Seconds Sodium 135 L (136-145) mEq/L Potassium 4.1 (3.5-5.1) mEq/L Chloride 99 (98-107) mEq/L Carbon Dioxide 26 (23-29) mEq/L BUN 22 (8-23) mg/dL Creatinine 1.17 (0.70-1.30) mg/dL Est GFR ( Amer) > 60 (> 60) Est GFR (Non-Af Amer) > 60 (> 60) BUN/Creatinine Ratio 19 (6-26) Glucose 105 (70-105) mg/dL Calculated Osmolality 284 (280-300) Lactic Acid (0.5-2.2) mmol/L Calcium 9.2 (8.6-10.3) mg/dL Phosphorus 2.0 L (2.7-4.5) mg/dL Magnesium 1.8 (1.6-2.6) mg/dL Total Bilirubin 0.3 (0.3-1.0) mg/dL Direct Bilirubin 0.1 (0.0-0.2) mg/dL Indirect Bilirubin 0.2 (0.0-1.2) mg/dL AST 56 H (13-39) Units/L ALT 72 H (7-52) Units/L Alkaline Phosphatase 118 H (34-104) Units/L Troponin I < 0.03 (< 0.04) ng/mL Serum Total Protein 7.7 (6.4-8.9) g/dL Albumin 3.8 (3.5-5.7) g/dL Globulin 3.9 H (2.4-3.5) g/dL Albumin/Globulin Ratio 1.0 L (1.1-2.2) Urine Color (Yellow) Urine Clarity (Clear) Urine pH (5.0-8.0) pH Units Ur Specific [place] (1.010-1.025) Urine Protein (Neg-Trace) mg/dL Urine Glucose (UA) (Normal) mg/dL Urine Ketones (Negative) mg/dL Urine Blood (Negative) Urine Nitrite (Negative) Urine Bilirubin (Negative) Urine Urobilinogen (Normal) mg/dL Ur Leukocyte Esterase (Negative) Ur Culture Indicated? (NO) 03/16/19 03/16/19 Range/Units 23:03 23:43 WBC (4.3-11.1) K/mcL RBC (4.19-5.50) M/mcL Hgb (12.9-16.9) g/dL Hct (37.5-50.1) % MCV (83.0-100.0) fL MCH (28.0-33.3) pg MCHC (31.6-35.5) g/dL RDW (11.5-14.5) % Plt Count (140-400) K/mcL MPV (9.4-12.4) fL Immature Gran % (0-4) % Seg Neutrophils % % Lymphocytes % % Monocytes % % Eosinophils % % Basophils % % Neutrophils # (1.6-8.9) K/mcL Lymphocytes # (0.6-4.6) K/mcL Monocytes # (0.0-1.3) K/mcL Eosinophils # (0.0-0.6) K/mcL Basophils # (0.0-0.2) K/mcL Nucleated RBCs/100 WBC (0) /100 WBC Polychromasia (Not Present) PT (9.4-12.1) Seconds INR APTT (26.0-36.0) Seconds Sodium (136-145) mEq/L Potassium (3.5-5.1) mEq/L Chloride (98-107) mEq/L Carbon Dioxide (23-29) mEq/L BUN (8-23) mg/dL Creatinine (0.70-1.30) mg/dL Est GFR ( Amer) (> 60) Est GFR (Non-Af Amer) (> 60) BUN/Creatinine Ratio (6-26) Glucose (70-105) mg/dL Calculated Osmolality (280-300) Lactic Acid 2.4 H (0.5-2.2) mmol/L Calcium (8.6-10.3) mg/dL Phosphorus (2.7-4.5) mg/dL Magnesium (1.6-2.6) mg/dL Total Bilirubin (0.3-1.0) mg/dL Direct Bilirubin (0.0-0.2) mg/dL Indirect Bilirubin (0.0-1.2) mg/dL AST (13-39) Units/L ALT (7-52) Units/L Alkaline Phosphatase (34-104) Units/L Troponin I (< 0.04) ng/mL Serum Total Protein (6.4-8.9) g/dL Albumin (3.5-5.7) g/dL Globulin (2.4-3.5) g/dL Albumin/Globulin Ratio (1.1-2.2) Urine Color Yellow (Yellow) Urine Clarity Clear (Clear) Urine pH 7.0 (5.0-8.0) pH Units Ur Specific [place] 1.012 (1.010-1.025) Urine Protein Negative (Neg-Trace) mg/dL Urine Glucose (UA) Normal (Normal) mg/dL Urine Ketones Negative (Negative) mg/dL Urine Blood Negative (Negative) Urine Nitrite Negative (Negative) Urine Bilirubin Negative (Negative) Urine Urobilinogen Normal (Normal) mg/dL Ur Leukocyte Esterase Negative (Negative) Ur Culture Indicated? NO (NO)
[2019-03-17] MEDS ORDERED: levoFLOXacin 750 MG/150 ML 750 MG/150 ML BAG IVPB ONE (03:03)
[2019-03-17] MEDS ORDERED: Hydrocortisone Sodium Succ 100 MG/2 ML VIAL IVP ONE (03:04)
[2019-03-17] MEDS ORDERED: 0.9 % Sodium Chloride 1,000 ML IVC SCH ×3 (03:15→09:23)
[2019-03-17] MEDS ORDERED: Naloxone 0.4 MG/ML INJ IVP PRN (05:48)
[2019-03-17] MEDS ORDERED: Albuterol 2.5 MG/3 ML NEBULIZER IH PRN (05:48)
[2019-03-17] MEDS ORDERED: Ondansetron 4 MG/2 ML VIAL IVP PRN (05:48)
[2019-03-17] MEDS ORDERED: Aspirin 325 MG TABLET PO PRN (06:00)
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
[2019-03-17 06:39] LABS: Basophils % 0.1 %; Eosinophils % 0.2 %; Hematocrit 31.4 % (37.5-50.1); Immature Granulocytes % 4.8 % (0-4); Lymphocytes % 0.3 %; Mean Corpuscular HGB Conc 31.8 g/dL (31.6-35.5); Mean Corpuscular Hemoglobin 33.6 pg (28.0-33.3); Mean Corpuscular Volume 105.4 fL (83.0-100.0); Mean Platelet Volume 8.7 fL (9.4-12.4); Monocytes # 0.2 K/mcL (0.0-1.3); Monocytes % 1.6 %; Neutrophils # 9.2 K/mcL (1.6-8.9); Nucleated Red Blood Cells 0.3 /100 WBC (0); Platelet Count 154 K/mcL (140-400); Red Blood Count 2.98 M/mcL (4.19-5.50); Red Cell Distribution Width 14.4 % (11.5-14.5); White Blood Count 9.9 K/mcL (4.3-11.1)
[2019-03-17] MEDS: *HR* Heparin 5,000 UNIT/ML VIAL SQ SCH ×2 (06:41→17:23)
[2019-03-17] MEDS: Levothyroxine 25 MCG TABLET PO SCH (06:41)
[2019-03-17 06:49] LABS: INR 1.1; Prothrombin Time 12.8 Seconds (9.4-12.1)
[2019-03-17 06:51] LABS: Activated Partial Thrombo Time 31.1 Seconds (26.0-36.0)
[2019-03-17 06:55] LABS: Alanine Aminotransferase 50 Units/L (7-52); Albumin 2.9 g/dL (3.5-5.7); Alkaline Phosphatase 91 Units/L (34-104); Aspartate Amino Transferase 36 Units/L (13-39); BUN/Creatinine Ratio 16 (6-26); Bilirubin,Total 0.3 mg/dL (0.3-1.0); Blood Urea Nitrogen 19 mg/dL (8-23); Calcium 7.9 mg/dL (8.6-10.3); Carbon Dioxide 22 mEq/L (23-29); Chloride 103 mEq/L (98-107); Globulin 2.9 g/dL (2.4-3.5); Glucose 151 mg/dL (70-105); Magnesium 1.7 mg/dL (1.6-2.6); Osmolality,Calculated 289 (280-300); Phosphorous 3.4 mg/dL (2.7-4.5); Potassium 3.6 mEq/L (3.5-5.1); Sodium 137 mEq/L (136-145); Total Protein 5.8 g/dL (6.4-8.9); eGFR For African Americans > 60 (> 60); eGFR For Non-African Americans > 60 (> 60)
[2019-03-17] MEDS: Piperacillin/Tazobactam 3.375 GM in 0.9 % Sodium Chloride Mini Bag 100 ML IVPB SCH ×3 (07:39→23:19)
[2019-03-17] MEDS: Hydrocortisone Sodium Succ 100 MG/2 ML VIAL IVP SCH ×3 (08:02→17:23)
--- NOTE | 2019-03-17 08:03 | Event Note ---
Date of Encounter: 03/17/19 Time of Encounter: 08:03 Patient seen and examined this morning at bedside admitted overnight for healthcare acquired pneumonia. Currently on Zosyn and vancomycin and Levaquin. Recently treated with Augmentin. He came back with sepsis likely with postobstructive pneumonia due to his cancer. Patient had lactic acidosis and received appropriate IV fluid resuscitation and stress test steroids. We will continue for now. We will consult oncology. c/w GI amd DVT prophylaxis. He is currently full code however did not want to place central lines in case needed for pressors. Blood pressure is low but improved and currently stable. He is also feeling better. Good air entry on exam, no crackles or wheezing on lung exam, no abdominal tenderness or pedal edema.
[2019-03-17] MEDS ORDERED: Hydrocortisone Sodium Succ 100 MG/2 ML VIAL IVP SCH (09:00)
[2019-03-17] MEDS: Ipratropium/Albuterol Neb 3 ML IH SCH ×3 (10:47→21:48)
[2019-03-17] MEDS ORDERED: Vancomycin (wt based) 1,000 MG VIAL IVPB SCH (12:00)
--- NOTE | 2019-03-17 13:46 | Electrocardiograph Report ---
[facility] Test Date: 2019-03-16 Pat Name: Anup Palomino Department: [id number] Room: 48 Gender: M Security System Technician: : [id number] Requested By: Keisha Claros Order Number: [id number] Reading MD: Calvin Olsen Measurements Intervals [place] Rate: 115 P: -21 AR: 170 QRS: 25 QRSD: 75 T: 43 QT: 299 QTc: 414 Interpretive Statements Sinus tachycardia Probable left atrial enlargement Electronically Signed On 03-17-2019 13:44:56 EDT by Calvin Olsen
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
[2019-03-17] MEDS: Acetaminophen 325 MG TABLET PO PRN (16:34)
[2019-03-17] MEDS: Pantoprazole 40 MG VIAL IVP SCH (18:10)
[2019-03-18 03:41] LABS: Basophils % 0.1 %; Hematocrit 31.3 % (37.5-50.1); Hemoglobin 9.8 g/dL (12.9-16.9); Immature Granulocytes % 4.5 % (0-4); Immature Platelets 1.7 % (1.1-6.1); Lymphocytes # 0.1 K/mcL (0.6-4.6); Lymphocytes % 1.5 %; Mean Corpuscular HGB Conc 31.3 g/dL (31.6-35.5); Mean Corpuscular Hemoglobin 33.1 pg (28.0-33.3); Mean Corpuscular Volume 105.7 fL (83.0-100.0); Mean Platelet Volume 8.9 fL (9.4-12.4); Monocytes # 0.2 K/mcL (0.0-1.3); Monocytes % 1.9 %; Nucleated Red Blood Cells 0.2 /100 WBC (0); Platelet Count 223 K/mcL (140-400); Red Blood Count 2.96 M/mcL (4.19-5.50); Red Cell Distribution Width 14.1 % (11.5-14.5); White Blood Count 9.3 K/mcL (4.3-11.1)
[2019-03-18 03:49] LABS: Neutrophils # 8.6 K/mcL (1.6-8.9)
[2019-03-18 03:57] LABS: BUN/Creatinine Ratio 12 (6-26); Blood Urea Nitrogen 12 mg/dL (8-23); Calcium 8.9 mg/dL (8.6-10.3); Carbon Dioxide 22 mEq/L (23-29); Chloride 109 mEq/L (98-107); Glucose 194 mg/dL (70-105); Osmolality,Calculated 301 (280-300); Sodium 143 mEq/L (136-145); eGFR For African Americans > 60 (> 60); eGFR For Non-African Americans > 60 (> 60)
[2019-03-18] MEDS: Ipratropium/Albuterol Neb 3 ML IH SCH ×2 (04:16→09:53)
[2019-03-18 04:49] LABS: Anisocytosis 1+ (Not Present); Platelet Estimate Normal (Normal)
[2019-03-18] MEDS ORDERED: 0.9 % Sodium Chloride 1,000 ML IVC ONE (05:11)
[2019-03-18] MEDS: *HR* Heparin 5,000 UNIT/ML VIAL SQ SCH ×2 (05:32→18:17)
[2019-03-18] MEDS: Levothyroxine 25 MCG TABLET PO SCH (05:32)
[2019-03-18] MEDS: Acetaminophen 325 MG TABLET PO PRN (06:56)
[2019-03-18] MEDS ORDERED: Aminoglycoside Consult 1 EACH MC ONE (07:34)
[2019-03-18] MEDS: Piperacillin/Tazobactam 3.375 GM in 0.9 % Sodium Chloride Mini Bag 100 ML IVPB SCH ×2 (08:22→16:33)
[2019-03-18] MEDS: Pantoprazole 40 MG VIAL IVP SCH (08:22)
[2019-03-18] MEDS: levoFLOXacin 750 MG/150 ML 750 MG/150 ML BAG IVPB SCH (08:22)
[2019-03-18] MEDS ORDERED: *HR* OxyCODONE Immed Rel 5 MG TABLET PO PRN ×3 (09:52→16:06)
--- NOTE | 2019-03-18 10:06 | Internal Med Progress Note ---
Hospitalist Progress Note - Encounter Date of Encounter: 03/18/19 Time of Encounter: 10:04 - Subjective Interval History: Seen and examined this morning at bedside. Denies any new symptoms. Breathing gradually improving. Denies any fevers but had some chills. Afebrile and hemodynamically stable. had one episode of diarrhea. Rt sided chest pain. - Exam Vitals: Temp Pulse Resp BP Pulse Ox 97.7 F 82 18 128/68 97 03/18/19 06:58 03/18/19 06:58 03/18/19 09:55 03/18/19 06:58 03/18/19 09:55 Exam: General: In mild distress due to pain. Respiratory exam: no accessory muscle use at rest, Rhonchi on Rt lung field Cardiovascular exam: RRR, +S1, +S2. no murmur, gallop, rubs. GI/Abdominal exam: Non-tender, Non-distended, normal bowel sounds, soft, no peritoneal signs. Extremities exam: no pedal edema, no calf tenderness Neurological exam: CN II-XII intact, AO X3, no focal deficits. Skin exam: scattered ecchymois on hand. - Assessment and Plan (1) Squamous cell carcinoma of lung Current Visit: Yes Status: Chronic (2) Acute and chronic respiratory failure with hypoxia Current Visit: Yes Status: Acute (3) Sepsis Current Visit: Yes Status: Acute (4) DVT prophylaxis Current Visit: Yes Status: Acute - Summary of Assessment and Plan Summary of Assessment and Plan: Assessment Acute Sepsis-resolved Acute on chronic respiratory failure with hypoxia HCAP - unclear organism Squamous cell [place] ca hypokalemia lactic acidosis Chronic metastatic lung ca COPD Plan - likely post obstructive pneumonia due to cancer. c/w empiric zosyn and levaquin. Obtain urinary ag. stop vancomycin. f/u blood cultures. sputum cultures not available. c/w gentle. change duonebs to prn. supplemental oxgygen. BP improved. stop solucortef and c/w dexamethasone. Keep on PPI for now. - Progression of cancer s/p chemoradiation and durvalumab. He is interested in continuing therapy. Discussed with Hemonc. may not be candidate for further treatment. Palliative care has been consulted. Appreciate recommendations. Pain regimen per Palliative. - Heparin SQ. Internal Medicine: Result - Labs CBC & Chem 7: 03/18/19 03:10 03/18/19 03:10 Labs: Short CBC 03/18/19 Range/Units 03:10 WBC 9.3 (4.3-11.1) K/mcL Hgb 9.8 L (12.9-16.9) g/dL Hct 31.3 L (37.5-50.1) % Plt Count 223 (140-400) K/mcL Neutrophils # 8.6 (1.6-8.9) K/mcL BMP 03/18/19 03:10 Sodium 143 Potassium 3.0 L Chloride 109 H Carbon Dioxide 22 L BUN 12 Creatinine 1.00 Glucose 194 H Calcium 8.9 - ABG Interpretation ABG results: PT/INR, D-dimer PT 12.8 Seconds (9.4-12.1) H 03/17/19 06:19 Consult Discharge Plan - Plan Referrals: NONE,PCP [Primary Care Provider] - (1) Squamous cell carcinoma of lung Qualifiers: Laterality: right Qualified Code(s): C34.91 - Malignant neoplasm of unspecified part of right bronchus or lung (3) Sepsis Qualifiers: Sepsis type: sepsis due to unspecified organism Qualified Code(s): A41.9 - Sepsis, unspecified organism
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
[2019-03-18] MEDS ORDERED: Ipratropium/Albuterol Neb 3 ML IH PRN (10:34)
[2019-03-18] MEDS ORDERED: Ringers Solution, Lactated 1,000 ML IVC SCH (11:00)
[2019-03-18] MEDS ORDERED: Morphine Sulfate ER (12 HR) 15 MG TABLET.ER PO SCH ×2 (11:00→18:00)
--- NOTE | 2019-03-18 16:32 | Oncology Inp Progress Note ---
Date of Encounter: 03/18/19 Time of Encounter: 16:00 (1) Metastatic lung cancer (metastasis from lung to other site) Current Visit: Yes Status: Acute Assessment and plan: Palliative Care (Leela Estrada) and I spoke before and after my encounter. We appreciate her input. Code status changed to DNR CC We had a long discussion with patient and sister at bedside. Patient states that he and his would like to finish his last 3 brain radiation treatments at [facility] [place] with Dr Preciado as an outpatient. I spoke to Dr Preciado, an d he is agreeable to this if patient desires it. He is open to outpatient hospice and palliative care. [facility] will not accept if in treatment. Patient states that today, he prefers brain radiation completion, then possible admission to hospice. I explained immunotherapy will not be a benefit at this point as his right lung mass is aggressive. He will have worsening in pain, breathing and recurrent hospitalizations due to pneumonia. Dr Riggs, his medical oncologist, is in agreement. Palliative care and hospice should be seriously considered as his health will continue to decline. For patient and his , Lacy, this is a process that is taking some time to absorb, and this is reasonable for his situation. He did very well, until unexpected brain mets and aggressiveness of lung disease began to take hold in the last 3-4 weeks. This has been hard for family to accept. Continue to treat him for admission diagnosis. Please keep him through the weekend for pain control, antibiotics, oxygen and breathing treatments. Consider PT. We will follow with palliative care and re-assess his wishes on Thursday. Palliative care will adjust pain meds, as he continues to be in discomfort. Dr Rascon contact center associate for the next week, and is updated on above plan for any needs. Qualifiers: Laterality: right Qualified Code(s): C34.91 - Malignant neoplasm of unspecified part of right bronchus or lung (2) Brain metastases Current Visit: No Status: Acute (3) Sepsis Current Visit: Yes Status: Acute Qualifiers: Sepsis type: sepsis due to unspecified organism Qualified Code(s): A41.9 - Sepsis, unspecified organism (4) Pneumonia Current Visit: No Status: Acute Qualifiers: Pneumonia type: due to unspecified organism Laterality: right Lung location: lower lobe of lung Qualified Code(s): J18.1 - Lobar pneumonia, unspecified organism Oncology: Subj Interval history: Patient laying supine complaining of increased pain in lower ribs/pleuritic pain. Sister at bedside. Complains about seeing black spots - Constitutional General appearance: cooperative, mild distress - Head Head exam: Present: normal inspection, normocephalic - Eye Pupils: Present: PERRL Additional comments: Patient unable to focus for accomodation bilateral - ENT ENT exam: Present: mucous membranes moist - Neck Neck exam: Present: full ROM - Respiratory Respiratory exam: Present: decreased breath sounds (right base with rhonchi) - Cardiovascular Cardiovascular exam: Present: RRR - GI/Abdominal GI/Abdominal exam: Present: soft - Extremities Exam Extremities exam: Present: full ROM - Neurological Exam Neurological exam: Present: alert, no focal deficits - Psychiatric Psychiatric exam: Present: flat affect - Skin Skin exam: Present: dry, intact, warm Oncology: Obj Data - Labs CBC & Chem 7: 03/18/19 03:10 03/18/19 03:10 Consult Discharge Plan - Plan Referrals: NONE,PCP [Primary Care Provider] - Inpatient Charges Provider: Valeriy Diallo Jr. [employer]ITE [employer] AGENT Follow up - Inpatient: [id number]
[2019-03-18] MEDS: *HR* OxyCODONE Immed Rel 5 MG TABLET PO PRN (16:33)
[2019-03-18] MEDS: Morphine Sulfate ER (12 HR) 15 MG TABLET.ER PO SCH (18:17)
[2019-03-18] MEDS: Mirtazapine 15 MG TABLET PO SCH (20:10)
[2019-03-18] MEDS: Melatonin 3 MG TABLET PO SCH (20:10)
[2019-03-19] MEDS: Piperacillin/Tazobactam 3.375 GM in 0.9 % Sodium Chloride Mini Bag 100 ML IVPB SCH ×2 (00:20→07:57)
[2019-03-19] MEDS: Morphine Sulfate ER (12 HR) 15 MG TABLET.ER PO SCH ×2 (05:34→16:41)
[2019-03-19] MEDS: Levothyroxine 25 MCG TABLET PO SCH (05:34)
[2019-03-19] MEDS: *HR* Heparin 5,000 UNIT/ML VIAL SQ SCH ×2 (05:36→16:40)
[2019-03-19 06:39] LABS: Basophils % 0.1 %; Hematocrit 29.2 % (37.5-50.1); Hemoglobin 9.2 g/dL (12.9-16.9); Immature Granulocytes % 5.6 % (0-4); Lymphocytes # 0.3 K/mcL (0.6-4.6); Lymphocytes % 3.3 %; Mean Corpuscular HGB Conc 31.5 g/dL (31.6-35.5); Mean Corpuscular Hemoglobin 33.3 pg (28.0-33.3); Mean Corpuscular Volume 105.8 fL (83.0-100.0); Monocytes # 0.4 K/mcL (0.0-1.3); Monocytes % 4.1 %; Neutrophils # 8.4 K/mcL (1.6-8.9); Nucleated Red Blood Cells 0.6 /100 WBC (0); Platelet Count 178 K/mcL (140-400); Red Blood Count 2.76 M/mcL (4.19-5.50); Red Cell Distribution Width 14.6 % (11.5-14.5); Segmented Neutrophils % 86.9 %; White Blood Count 9.7 K/mcL (4.3-11.1)
[2019-03-19 07:02] LABS: Anisocytosis 1+ (Not Present)
[2019-03-19 07:03] LABS: Platelet Estimate Normal (Normal)
[2019-03-19 07:04] LABS: BUN/Creatinine Ratio 16 (6-26); Blood Urea Nitrogen 16 mg/dL (8-23); Calcium 9.2 mg/dL (8.6-10.3); Carbon Dioxide 27 mEq/L (23-29); Chloride 108 mEq/L (98-107); Glucose 112 mg/dL (70-105); Osmolality,Calculated 296 (280-300); Potassium 4.4 mEq/L (3.5-5.1); Sodium 142 mEq/L (136-145); eGFR For African Americans > 60 (> 60); eGFR For Non-African Americans > 60 (> 60)
--- NOTE | 2019-03-19 07:54 | Internal Med Progress Note ---
Hospitalist Progress Note - Encounter Date of Encounter: 03/19/19 Time of Encounter: 07:53 - Subjective Interval History: Patient seen and examined this morning at bedside. No acute overnight events. Pain is slightly better controlled. Still short of breath with minimal exertion. Afebrile. Denies any other complain. Tearful at times on discussion about plan. Rethinking about his brain radiation whether to go ahead or not. - Exam Vitals: Temp Pulse Resp BP Pulse Ox 97.6 F 79 18 152/84 95 03/19/19 07:02 03/19/19 07:02 03/19/19 07:02 03/19/19 07:02 03/19/19 07:02 Exam: General: In mild distress due to pain. Respiratory exam: no accessory muscle use at rest, Rhonchi on Rt lung field Cardiovascular exam: RRR, +S1, +S2. no murmur, gallop, rubs. GI/Abdominal exam: Non-tender, Non-distended, normal bowel sounds, soft, no peritoneal signs. Extremities exam: no pedal edema, no calf tenderness Neurological exam: CN II-XII intact, AO X3, no focal deficits. Skin exam: scattered ecchymois on hand. - Assessment and Plan (1) Squamous cell carcinoma of lung Current Visit: Yes Status: Chronic (2) Acute and chronic respiratory failure with hypoxia Current Visit: Yes Status: Acute (3) Sepsis Current Visit: Yes Status: Acute (4) DVT prophylaxis Current Visit: Yes Status: Acute - Summary of Assessment and Plan Summary of Assessment and Plan: Assessment Acute Sepsis-resolved Acute on chronic respiratory failure with hypoxia HCAP - unclear organism metastatic Squamous cell edilson ca hypokalemia lactic acidosis Chronic metastatic lung ca COPD Plan - likely post obstructive pneumonia due to cancer. urinary ag negative. Will stop zosyn. f/u blood cultures ,NGTD. c/w duonebs q12 tita and supplemental oxgygen. c/w home dexamethasone. c/w omeprazole. - Progression of cancer s/p chemoradiation and durvalumab. After discussiion with Hemonc he was thinking to continue brain radiation, however reconsidering whether he wants to continue. Immunoptherapy will not benefit per hemonc. Palliative care following. He is made DNRCC. Pain better controlled with MS contin 15 q12 with oxycodone for breakthrough pain. Patient to have discussion again on thursday regarding hospice as if he want to continue radiation therapy hospice would wait. - Heparin SQ. Internal Medicine: Result - Labs CBC & Chem 7: 03/19/19 06:01 03/19/19 06:01 Labs: Short CBC 03/19/19 Range/Units 06:01 WBC 9.7 (4.3-11.1) K/mcL Hgb 9.2 L (12.9-16.9) g/dL Hct 29.2 L (37.5-50.1) % Plt Count 178 (140-400) K/mcL Neutrophils # 8.4 (1.6-8.9) K/mcL BMP 03/19/19 06:01 Sodium 142 Potassium 4.4 Chloride 108 H Carbon Dioxide 27 BUN 16 Creatinine 0.98 Glucose 112 H Calcium 9.2 - ABG Interpretation ABG results: PT/INR, D-dimer PT 12.8 Seconds (9.4-12.1) H 03/17/19 06:19 Consult Discharge Plan - Plan Referrals: NONE,PCP [Primary Care Provider] - (1) Squamous cell carcinoma of lung Qualifiers: Laterality: right Qualified Code(s): C34.91 - Malignant neoplasm of unspecified part of right bronchus or lung (3) Sepsis Qualifiers: Sepsis type: sepsis due to unspecified organism Qualified Code(s): A41.9 - Sepsis, unspecified organism
[2019-03-19] MEDS: Venlafaxine XR (24 HR) 75 MG CAP.ER.24H PO SCH (07:56)
[2019-03-19] MEDS: levoFLOXacin 750 MG/150 ML 750 MG/150 ML BAG IVPB SCH (07:58)
[2019-03-19] MEDS: *HR* OxyCODONE Immed Rel 5 MG TABLET PO PRN (08:07)
[2019-03-19] MEDS: Ipratropium/Albuterol Neb 3 ML IH SCH ×2 (15:42→21:58)
[2019-03-19] MEDS: Melatonin 3 MG TABLET PO SCH (20:10)
[2019-03-19] MEDS: Mirtazapine 15 MG TABLET PO SCH (20:10)
[2019-03-20] MEDS: *HR* Heparin 5,000 UNIT/ML VIAL SQ SCH ×2 (05:41→17:09)
[2019-03-20] MEDS: Levothyroxine 25 MCG TABLET PO SCH (05:41)
[2019-03-20] MEDS: Morphine Sulfate ER (12 HR) 15 MG TABLET.ER PO SCH ×2 (05:41→17:10)
[2019-03-20 06:23] LABS: Hematocrit 32.2 % (37.5-50.1); Hemoglobin 10.1 g/dL (12.9-16.9); Mean Corpuscular HGB Conc 31.4 g/dL (31.6-35.5); Mean Corpuscular Hemoglobin 32.9 pg (28.0-33.3); Mean Corpuscular Volume 104.9 fL (83.0-100.0); Mean Platelet Volume 8.6 fL (9.4-12.4); Nucleated Red Blood Cells 1.6 /100 WBC (0); Platelet Count 169 K/mcL (140-400); Red Blood Count 3.07 M/mcL (4.19-5.50); Red Cell Distribution Width 14.6 % (11.5-14.5)
[2019-03-20 06:41] LABS: BUN/Creatinine Ratio 21 (6-26); Blood Urea Nitrogen 21 mg/dL (8-23); Calcium 9.6 mg/dL (8.6-10.3); Carbon Dioxide 32 mEq/L (23-29); Chloride 106 mEq/L (98-107); Glucose 113 mg/dL (70-105); Osmolality,Calculated 302 (280-300); Potassium 4.2 mEq/L (3.5-5.1); Sodium 144 mEq/L (136-145); eGFR For African Americans > 60 (> 60); eGFR For Non-African Americans > 60 (> 60)
[2019-03-20 06:44] LABS: Lymphocytes # 0.4 K/mcL (0.6-4.6); Monocytes # 0.2 K/mcL (0.0-1.3); Neutrophils # 8.8 K/mcL (1.6-8.9)
[2019-03-20 06:45] LABS: Platelet Estimate Normal (Normal)
[2019-03-20] MEDS: Ipratropium/Albuterol Neb 3 ML IH SCH (07:52)
--- NOTE | 2019-03-20 09:33 | Internal Med Progress Note ---
Hospitalist Progress Note - Encounter Date of Encounter: 03/20/19 Time of Encounter: 08:33 - Subjective Interval History: Patient seen and examined this morning at bedside. No acute overnight events. Denies new complaints. Breathing slightly better. Pain is controlled. He is almost made his mind not to go ahead with brain radiation however wants to talk along with to oncology and palliative care. - Exam Vitals: Temp Pulse Resp BP Pulse Ox 97.8 F 65 18 149/82 92 03/20/19 06:58 03/20/19 06:58 03/20/19 07:54 03/20/19 06:58 03/20/19 07:54 Exam: General: In no distress Respiratory exam: no accessory muscle use at rest, CTAB Cardiovascular exam: RRR, +S1, +S2. no murmur, gallop, rubs. GI/Abdominal exam: Non-tender, Non-distended, normal bowel sounds, soft, no peritoneal signs. Extremities exam: no pedal edema, no calf tenderness Neurological exam: CN II-XII intact, AO X3, no focal deficits. Skin exam: scattered ecchymois on hand. - Assessment and Plan (1) Squamous cell carcinoma of lung Current Visit: Yes Status: Chronic (2) Acute and chronic respiratory failure with hypoxia Current Visit: Yes Status: Acute (3) Sepsis Current Visit: Yes Status: Acute (4) DVT prophylaxis Current Visit: Yes Status: Acute - Summary of Assessment and Plan Summary of Assessment and Plan: Assessment Acute Sepsis-resolved Acute on chronic respiratory failure with hypoxia HCAP - unclear organism metastatic Squamous cell lung ca hypokalemia lactic acidosis Chronic metastatic lung ca COPD hypothyrodism depression Plan - likely post obstructive pneumonia due to cancer. urinary ag negative. c/w levaquin. f/u blood cultures,NGTD. breathing clinically improve. c/w home dexamethasone. c/w omeprazole. - Progression of cancer s/p chemoradiation and durvalumab. After discussiion with Hemonc he was thinking to continue brain radiation, however reconsidering the decision and considering hospice, but wants to have discussion tomorrow with along with Hemonc and palliative care. Palliative care following. He is made DNRCC. Pain better controlled with MS contin 15 q12 with oxycodone for breakthrough pain. Will have discussion tommorrow. - Heparin SQ. - c/w home antidepressants and levothyroxin Internal Medicine: Result - Labs CBC & Chem 7: 03/20/19 06:07 03/20/19 06:07 Labs: Short CBC 03/20/19 Range/Units 06:07 WBC 10.0 (4.3-11.1) K/mcL Hgb 10.1 L (12.9-16.9) g/dL Hct 32.2 L (37.5-50.1) % Plt Count 169 (140-400) K/mcL Neutrophils # 8.8 (1.6-8.9) K/mcL BMP 03/20/19 06:07 Sodium 144 Potassium 4.2 Chloride 106 Carbon Dioxide 32 H BUN 21 Creatinine 1.02 Glucose 113 H Calcium 9.6 - ABG Interpretation ABG results: PT/INR, D-dimer PT 12.8 Seconds (9.4-12.1) H 03/17/19 06:19 Consult Discharge Plan - Plan Referrals: NONE,PCP [Primary Care Provider] - (1) Squamous cell carcinoma of lung Qualifiers: Laterality: right Qualified Code(s): C34.91 - Malignant neoplasm of unspecified part of right bronchus or lung (3) Sepsis Qualifiers: Sepsis type: sepsis due to unspecified organism Qualified Code(s): A41.9 - Sepsis, unspecified organism
[2019-03-20] MEDS: Venlafaxine XR (24 HR) 75 MG CAP.ER.24H PO SCH (09:37)
[2019-03-20] MEDS: levoFLOXacin 750 MG/150 ML 750 MG/150 ML BAG IVPB SCH (09:37)
[2019-03-20] MEDS: *HR* OxyCODONE Immed Rel 5 MG TABLET PO PRN ×2 (09:42→22:03)
[2019-03-20] MEDS: Mirtazapine 15 MG TABLET PO SCH (19:39)
[2019-03-20] MEDS: Melatonin 3 MG TABLET PO SCH (22:03)
[2019-03-21] MEDS: *HR* Heparin 5,000 UNIT/ML VIAL SQ SCH (05:43)
[2019-03-21] MEDS: Morphine Sulfate ER (12 HR) 15 MG TABLET.ER PO SCH (05:43)
[2019-03-21] MEDS: Levothyroxine 25 MCG TABLET PO SCH (05:52)
[2019-03-21] MEDS: Venlafaxine XR (24 HR) 75 MG CAP.ER.24H PO SCH (07:56)
--- NOTE | 2019-03-21 08:59 | Palliative Progress Note ---
Date of Encounter: 03/21/19 Time of Encounter: 08:50 - Assessment and plan (1) Cancer associated pain Current Visit: Yes Status: Acute Assessment and plan: Continue MS Contin 15 every 12 hours, with Oxycodone for breakthrough pain. Utilized x2 last 24 hours. (2) Therapeutic opioid-induced constipation (OIC) Current Visit: Yes Status: Acute Assessment and plan: Will begin Senokot BID and monitor. Discussed with patient will need to stay on bowel regimen with opioids. (3) Goals of care, counseling/discussion Current Visit: Yes Status: Acute Assessment and plan: Patient reconsidering having last 3 radiation treatment and may decide to go ahead and enroll in hospice care. Awaiting to arrive. (4) Acute and chronic respiratory failure with hypoxia Current Visit: Yes Status: Acute (5) Metastatic lung cancer (metastasis from lung to other site) Current Visit: Yes Status: Acute Qualifiers: Laterality: right Qualified Code(s): C34.91 - Malignant neoplasm of unspecified part of right bronchus or lung (6) Brain metastases Current Visit: No Status: Acute (7) Pneumonia Current Visit: No Status: Acute Qualifiers: Pneumonia type: due to unspecified organism Laterality: right Lung location: lower lobe of lung Qualified Code(s): J18.1 - Lobar pneumonia, unspecified organism - Time Spent With Patient Total time spent is greater than 50% in coordination of care (as documented) at patient's floor/unit and/or counseling patient: - Subjective Interval history: Patient awake and alert, up on side of bed. No family present. Pain better controlled with new regimen. Still with some right sided chest pain with coughing and moving at times. - Constitutional Vitals: Abnormal lab results WBC 13.1 K/mcL (4.3-11.1) H 03/16/19 23:03 RBC 3.07 M/mcL (4.19-5.50) L 03/20/19 06:07 Hgb 10.1 g/dL (12.9-16.9) L 03/20/19 06:07 Hct 32.2 % (37.5-50.1) L 03/20/19 06:07 MCV 104.9 fL (83.0-100.0) H 03/20/19 06:07 MCH 33.6 pg (28.0-33.3) H 03/17/19 06:19 MCHC 31.4 g/dL (31.6-35.5) L 03/20/19 06:07 RDW 14.6 % (11.5-14.5) H 03/20/19 06:07 MPV 8.6 fL (9.4-12.4) L 03/20/19 06:07 Immature Gran % 5.6 % (0-4) H 03/19/19 06:01 Myelocytes % 6.0 % (0) H 03/20/19 06:07 Neutrophils # 9.2 K/mcL (1.6-8.9) H 03/17/19 06:19 Lymphocytes # 0.4 K/mcL (0.6-4.6) L 03/20/19 06:07 Nucleated RBCs/100 WBC 1.6 /100 WBC (0) H 03/20/19 06:07 Polychromasia 1+ (Not Present) A 03/16/19 23:03 Anisocytosis 1+ (Not Present) A 03/19/19 06:01 PT 12.8 Seconds (9.4-12.1) H 03/17/19 06:19 Sodium 135 mEq/L (136-145) L 03/16/19 23:03 Potassium 3.0 mEq/L (3.5-5.1) L 03/18/19 03:10 Chloride 108 mEq/L (98-107) H 03/19/19 06:01 Carbon Dioxide 32 mEq/L (23-29) H 03/20/19 06:07 Glucose 113 mg/dL (70-105) H 03/20/19 06:07 Calculated Osmolality 302 (280-300) H 03/20/19 06:07 Lactic Acid 3.8 mmol/L (0.5-2.2) H 03/20/19 10:09 Calcium 7.9 mg/dL (8.6-10.3) L 03/17/19 06:19 Phosphorus 2.0 mg/dL (2.7-4.5) L 03/16/19 23:03 AST 56 Units/L (13-39) H 03/16/19 23:03 ALT 72 Units/L (7-52) H 03/16/19 23:03 Alkaline Phosphatase 118 Units/L (34-104) H 03/16/19 23:03 Serum Total Protein 5.8 g/dL (6.4-8.9) L 03/17/19 06:19 Albumin 2.9 g/dL (3.5-5.7) L 03/17/19 06:19 Globulin 3.9 g/dL (2.4-3.5) H 03/16/19 23:03 Albumin/Globulin Ratio 1.0 (1.1-2.2) L 03/17/19 06:19 General appearance: Present: no acute distress - Respiratory Respiratory exam: Present: decreased breath sounds, CTAB - Cardiovascular Cardiovascular exam: Present: +S1, +S2 - GI/Abdominal GI/Abdominal exam: Present: normal bowel sounds, soft - Extremities Exam Extremities exam: Present: normal capillary refill, normal inspection - Neurological Exam Neurological exam: Present: alert, oriented X3, strengths equal and symetr throughout - Skin Skin exam: Present: dry, warm Palliative Quality Palliative Quality: Screen for Code Status: Yes, Screen for Goals of Care: Yes, Screen for Pain: Yes, If Pain Regimen Started, Initiate Bowel Regimen: Yes, Screen for Nausea/Vomitting: Yes Code Status: 03/16/19 23:41 Resuscitation Status: Active [RES] Stat Comment: Resuscitation Status: Full Code 03/18/19 09:53 DNR [Resuscitation Status: Active] [RES] Routine Comment: Resuscitation Status: DNR-Comfort Care - Labs CBC & Chem 7: 03/20/19 06:07 03/20/19 06:07 Labs: Laboratory Results - last 24 hr 03/20/19 10:09 Lactic Acid 3.8 H - ABG Interpretation ABG results: PT/INR, D-dimer PT 12.8 Seconds (9.4-12.1) H 03/17/19 06:19 Consult Discharge Plan - Plan Referrals: NONE,PCP [Primary Care Provider] -
[2019-03-21] MEDS ORDERED: levoFLOXacin 750 MG TABLET PO SCH (09:00)
[2019-03-21] MEDS ORDERED: Sennosides/Docusate Sodium TABLET PO SCH (09:00)
--- NOTE | 2019-03-21 11:06 | Event Note ---
Date of Encounter: 03/21/19 Time of Encounter: 10:45 Met with patient and regarding further goals of care and plan. Informed them I had spoke with Dr. Preciado, who agreed would be best to go ahead and enroll with hospice and forego last 3 radiation treatments. Patient and in agreement. Referral made to [facility]. Prescriptions sent for MS Contin, Oxycodone, and Senokot. Likely to be discharged today. Helen from [facility] in to see patient.
[2019-03-21 11:16] VITALS: BP 136/69
--- NOTE | 2019-03-21 12:13 | Discharge Summary ---
- NOTES TO OUTPATIENT PROVIDER Notes to Outpatient Provider: Patient discharged to hospice. Orders not resulted at time of discharge: Pending orders 03/16/19 23:03 Culture,Blood [] Stat 03/17/19 05:48 Culture,Sputum with Gram Stain [] Routine Date of Encounter: 03/21/19 Time of Encounter: 12:08 - Discharge Diagnosis (1) Squamous cell carcinoma of lung Priority: Primary Status: Chronic Qualifiers: Laterality: right Qualified Code(s): C34.91 - Malignant neoplasm of unspecified part of right bronchus or lung (2) Acute and chronic respiratory failure with hypoxia Priority: Primary Status: Acute (3) Sepsis Priority: Primary Status: Acute Qualifiers: Sepsis type: sepsis due to unspecified organism Qualified Code(s): A41.9 - Sepsis, unspecified organism (4) DVT prophylaxis Priority: Secondary Status: Acute Hospital course: Mr. Palomino is a 64 year old male with past medical history of small cell cancer with metastasis, was recently discharged after pneumonia treatment came in with complain of acute hypoxic respiratory failure and sepsis. He was started on broad-spectrum antibiotics. Patient had repeat CTA which showed worsening hilar disease with postobstructive pneumonia. Antibiotics were deemed escalated. Blood cultures remained negative. Improved with breathing treatments and antibiotics. Palliative care consult was obtained given oncology felt he would not benefit for further continuing treatment. Patient initially wanted to continue brain radiation however after thinking about it he decided to go along with hospice care. His pain was controlled with MS Contin 15 mg every 12 hours with as needed oxycodone. We will discharge patient to finish antibiotic course and pain medication. Will continue medication which would support having good quality of life. Discharge discussed with: patient, family, nurse, social work, configuration management consultant - Time Spent with Patient Total time spent providing and/or coordinating discharge services: Time spent: Greater than 30 minutes (40) - Discharge Medications Prescriptions: New Morphine Sulfate ER (12 HR) [MS Contin] 1 tab PO Q12HR 4 Days #8 tab OxyCODONE Immed Rel [Roxicodone 10 MG] 10 mg PO Q4H PRN 4 Days #16 tab PRN Reason: Breakthrough Pain Sennosides [Senokot] 8.6 mg PO BID 4 Days #8 tablet levoFLOXacin [Levaquin] 750 mg PO DAILY 5 Days #5 tablet Continued Omeprazole [PriLOSEC] 20 mg PO BIDAC #60 capsule. Promethazine [Phenergan] 25 mg PO Q6HR PRN #30 tablet PRN Reason: Nausea Venlafaxine XR (24 HR) [Effexor XR] 75 mg PO DAILY #30 cap.er.24h Levothyroxine [Synthroid] 25 mcg PO 0630 #30 tablet Dexamethasone [Decadron] 8 mg PO BID 30 Days #120 tab HYDROcodone/Acet 5/325 mg [[place] 5-325 mg] 1 tab PO Q8H PRN PRN Reason: Pain Mirtazapine [Remeron] 30 mg PO HS Discontinued Aspirin 325 mg PO DAILY PRN PRN Reason: Pain predniSONE [PredniSONE] 5 mg PO BID Turmeric Root Extract [Turmeric] 500 mg PO 2-3XD Home Medications: Omeprazole [PriLOSEC] 20 mg PO BIDAC #60 capsule. 11/29/18 [Rx] Promethazine [Phenergan] 25 mg PO Q6HR PRN #30 tablet 12/15/18 [Rx] Venlafaxine XR (24 HR) [Effexor XR] 75 mg PO DAILY #30 cap.er.24h 02/02/19 [Rx] Levothyroxine [Synthroid] 25 mcg PO 0630 #30 tablet 02/03/19 [Rx] Dexamethasone [Decadron] 8 mg PO BID 30 Days #120 tab 02/07/19 [Rx] HYDROcodone/Acet 5/325 mg [[place] 5-325 mg] 1 tab PO Q8H PRN 03/18/19 [History] Mirtazapine [Remeron] 30 mg PO HS 03/18/19 [History] Morphine Sulfate ER (12 HR) [MS Contin] 1 tab PO Q12HR 4 Days #8 tab 03/21/19 [Rx] OxyCODONE Immed Rel [Roxicodone 10 MG] 10 mg PO Q4H PRN 4 Days #16 tab 03/21/19 [Rx] Sennosides [Senokot] 8.6 mg PO BID 4 Days #8 tablet 03/21/19 [Rx] levoFLOXacin [Levaquin] 750 mg PO DAILY 5 Days #5 tablet 03/21/19 [Rx] Allergies/Adverse Reactions: Allergy/AdvReac Type Severity Reaction Status Date / Time No Known Allergies Allergy Verified 02/09/19 10:36 Date of admission: 03/17/19 05:51 Primary care physician: PCP NONE Consults: 03/17/19 04:17 Consult to Vegetable Worker [CONS] Routine Reason for SW Consult: Possible home health 03/17/19 10:16 Consult to Oncology Hematology [CONS] Routine Consulting Provider: [facility] Reason for Consult: Lung cancer, recurrent pneumonia Call Completed: Yes 03/17/19 18:27 Consult to Palliative Care [CONS] Routine Comment: 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 Consulting Provider: Palliative Care Ana Luisa Reason for Consult: symptoms, goals of care, code status, open to hospice discussion of what they have to offer Time Notified: 18:28 Call Completed: Yes 03/18/19 15:10 Consult to Nurse Navigator [CONS] Routine Comment: pn 03/19/19 07:18 Consult to Physical Therapy [CONS] Routine Comment: Evaluate, develop and implement POC Reason for Consult: improve mobility, discharge planning Does patient have active BEDREST order?: No Is patient medically & hemodynamically stable?: Yes Discharging clinician: Jessica Soto - Constitutional Vitals: Temp Pulse Resp BP Pulse Ox 97.8 F 83 17 136/69 93 03/21/19 11:15 03/21/19 11:15 03/21/19 11:15 03/21/19 11:15 03/21/19 11:15 Exam: General: In no distress Respiratory exam: no accessory muscle use at rest, CTAB Cardiovascular exam: RRR, +S1, +S2. no murmur, gallop, rubs. GI/Abdominal exam: Non-tender, Non-distended, normal bowel sounds, soft, no peritoneal signs. Extremities exam: no pedal edema, no calf tenderness Neurological exam: CN II-XII intact, AO X3, no focal deficits. Skin exam: scattered ecchymois on hand. - Patient Status Disposition: Hospice - Home Condition: Serious - Discharge Instructions Follow Up With: NONE,PCP [Primary Care Provider] - - Diet and Activity Diet: advance to your usual diet
--- NOTE | 2019-03-21 12:20 | Physician Discharge Referral ---
Home Health/Hosp Referral Info Transfer to: Home Health - Diagnosis (1) Squamous cell carcinoma of lung Status: Chronic (2) Acute and chronic respiratory failure with hypoxia Status: Acute (3) Sepsis Status: Acute (4) DVT prophylaxis Status: Acute - Respiratory Orders Smoking Cessation: Smoking cessation has been advised. For more information, call the [place] Tobacco Quit Line at 3-906-VAIF-NOW. - Transfer Medications Prescriptions: levoFLOXacin [Levaquin] 750 mg PO DAILY 5 Days #5 tablet Morphine Sulfate ER (12 HR) [MS Contin] 1 tab PO Q12HR 4 Days #8 tab OxyCODONE Immed Rel [Roxicodone 10 MG] 10 mg PO Q4H PRN 4 Days #16 tab PRN Reason: Breakthrough Pain Sennosides [Senokot] 8.6 mg PO BID 4 Days #8 tablet Home Medications: Omeprazole [PriLOSEC] 20 mg PO BIDAC #60 capsule. 11/29/18 [Rx] Promethazine [Phenergan] 25 mg PO Q6HR PRN #30 tablet 12/15/18 [Rx] Venlafaxine XR (24 HR) [Effexor XR] 75 mg PO DAILY #30 cap.er.24h 02/02/19 [Rx] Levothyroxine [Synthroid] 25 mcg PO 0630 #30 tablet 02/03/19 [Rx] Dexamethasone [Decadron] 8 mg PO BID 30 Days #120 tab 02/07/19 [Rx] HYDROcodone/Acet 5/325 mg [[place] 5-325 mg] 1 tab PO Q8H PRN 03/18/19 [History] Mirtazapine [Remeron] 30 mg PO HS 03/18/19 [History] Morphine Sulfate ER (12 HR) [MS Contin] 1 tab PO Q12HR 4 Days #8 tab 03/21/19 [Rx] OxyCODONE Immed Rel [Roxicodone 10 MG] 10 mg PO Q4H PRN 4 Days #16 tab 03/21/19 [Rx] Sennosides [Senokot] 8.6 mg PO BID 4 Days #8 tablet 03/21/19 [Rx] levoFLOXacin [Levaquin] 750 mg PO DAILY 5 Days #5 tablet 03/21/19 [Rx] Allergies/Adverse Reactions: Allergy/AdvReac Type Severity Reaction Status Date / Time No Known Allergies Allergy Verified 02/09/19 10:36 Certification: Further, I certify that my clinical findings support that this patient is homebound (i.e. absences from home require considerable and taxing effort and are for medical reasons or latter day services or infrequently or short duration when for other reasons) because: Homebound Reason: Patient requires assistance of a person or device to safely leave home Attestation: My signature below is to certify that this patient is under my care and that I, or nurse practitioner, or a physician's editorial assistant working with me, has a [id number] encounter with this patient.
== END 2019-03-21 13:09 | disposition hospice, home (50) | DRG 871 ==
LOC: 2ANU 22:48 → EMEROOARM 22:48 → 2ANU 03-17 03:50 → SUATTDRO 03-17 05:51
PROVIDERS: ADMIT Pediatrics; ATTEND Internal Medicine